=== PATIENT | male | born 1975 | race Caucasian/White ===

== ENCOUNTER 2022-08-01 11:16 | Outpatient (CLI) | payer OTHER, SELFPAY ==
[2022-08-01 15:18] LABS: Chloride* 106 mmol/L (96-114); Potassium* 4.3 mmol/L (3.6-5.1); Sodium* 141 mmol/L (135-149)
[2022-08-01 15:20] LABS: Cholesterol* 288 mg/dL (90-199); Creatinine* 0.9 mg/dL (0.5-1.5); Estimated Glomerular Filt Rate 106 ml/min
[2022-08-01 15:21] LABS: Blood Urea Nitrogen* 12 mg/dL (5-24); Calcium* 9.7 mg/dL (8.4-10.6); Carbon Dioxide* 26 mmol/L (20-32); Glucose* 123 mg/dL (60-115); HDL Cholesterol* 66 mg/dL (>=40); LDL Cholesterol Calculated 170 mg/dL (<100); Triglycerides* 259 mg/dL (40-149)
== END 2022-08-01 11:17 | disposition home or self-care (01) ==
PROVIDERS: PCP Family Medicine; Visit Provider Family Medicine
DX: Z01.818 Encounter for other preprocedural examination (principal); E78.5 Hyperlipidemia, unspecified
CPT/HCPCS: 80048; 80061

== ENCOUNTER 2022-08-08 08:05 | Outpatient (CLI) | payer OTHER, SELFPAY | END 2022-08-08 08:06 | disposition home or self-care (01) | PROVIDERS: PCP Family Medicine; Visit Provider Internal Medicine | DX: Z12.11 Encounter for screening for malignant neoplasm of colon (principal); K63.5 Polyp of colon | CPT/HCPCS: 45380; 88305; J2704 ==

== ENCOUNTER 2023-05-05 09:02 | Outpatient (CLI) | payer OTHER, SELFPAY | END 2023-05-05 09:03 | disposition home or self-care (01) | PROVIDERS: PCP Family Medicine; Visit Provider Family Medicine | DX: R53.83 Other fatigue (principal) | CPT/HCPCS: 80053; 84443; 85025 ==

== ENCOUNTER 2024-07-21 09:07 | Outpatient (CLI) | payer OTHER, SELFPAY | END 2024-07-21 09:08 | disposition home or self-care (01) | PROVIDERS: PCP Family Medicine; Visit Provider Family Medicine | DX: E78.5 Hyperlipidemia, unspecified (principal); Z12.5 Encounter for screening for malignant neoplasm of prostate | CPT/HCPCS: 80048; 80061; G0103 ==

== ENCOUNTER 2024-11-11 07:30 | Outpatient (RCR) | payer OTHER, SELFPAY | END 2025-03-11 23:59 | disposition home or self-care (01) | PROVIDERS: PCP Family Medicine; Visit Provider Orthopaedic Surgery Sports Medicine | DX: M75.82 Other shoulder lesions, left shoulder (principal); M19.012 Primary osteoarthritis, left shoulder; M77.12 Lateral epicondylitis, left elbow; Z51.89 Encounter for other specified aftercare | CPT/HCPCS: 97035; 97110; 97140; 97162 ==